=== PATIENT | male | born 1960 | race Caucasian/White ===

== ENCOUNTER 2016-12-05 19:33 | Emergency (ER) | payer OTHER, BC ==
[~2016-12-05] VITALS: Ht 172.7 cm; Wt 110.0 kg
[~2016-12-05 19:33] MED LIST: GABA400C5 PO; LISI-357 PO; MORP30SU PO
[2016-12-05 19:37] VITALS: BP 195/96; PULSE 88; RESP 18; TEMP 97.5; O2SAT 95
== END 2016-12-05 22:10 | disposition left against medical advice (07) ==
LOC: NED 19:33
DX: R06.02 Shortness of breath (principal)
CPT/HCPCS: 99281

== ENCOUNTER 2018-09-13 05:05 | Inpatient (IN) ==
[2018-09-13] MEDS ORDERED: Chlorhexidine Gluconate 2% 1 Pack (2 Cloths) TOPICAL ONE (05:39)
[2018-09-13] MEDS ORDERED: Metoprolol Tartrate 25 MG Tablet PO ONE (05:39)
[2018-09-13] MEDS ORDERED: Dexamethasone Inj 20 MG/5 ML Vial IV.PUSH ONE (05:41)
[2018-09-13] MEDS ORDERED: Chlorhexidine 4% Topical 120 APPLIC/120 ML Bottle TOPICAL SCH (05:45)
[2018-09-13] MEDS ORDERED: Vancomycin Inj 1,000 MG in Sodium Chlor 0.9% Inj 250 ML IV.SIG SCH (06:00)
[2018-09-13] MEDS ORDERED: ceFAZolin 2 GM Premix Inj 2 GM/50 ML PIGGYBACK IV.SIG SCH ×2 (06:00→06:07)
[2018-09-13] MEDS ORDERED: Sodium Chlor 0.9% Inj 500 ML IV.SIG SCH (06:00)
[2018-09-13] MEDS ORDERED: ceFAZolin 2 GM Premix Inj 2 GM/50 ML PIGGYBACK IV.SIG ONE (07:25)
[2018-09-13] MEDS ORDERED: Sodium Chlor 0.9% Inj 50 ML ONE (07:25)
[2018-09-13] MEDS ORDERED: Sodium Chlor 0.9% Inj 73.07 ML, Ropivacaine 0.5% PF Inj 24.63 ML, Ketorolac Inj 30 MG, ... P-ARTICULR SCH ×5 (08:30)
[2018-09-13] MEDS ORDERED: SODIUM CHLOR 0.9% IV.SIG SCH (08:30)
[2018-09-13] MEDS ORDERED: TRANEXAMIC ACID IV.SIG SCH (08:30)
[2018-09-13] MEDS ORDERED: Sodium Chlor 0.9% Inj 100 ML, Tranexamic Acid Inj 3,000 MG P-ARTICULR SCH ×2 (08:30)
[2018-09-13] MEDS ORDERED: *morphine SULFATE 4 MG/ML PERIprocedure ONLY ONE ×2 (11:35→12:06)
--- NOTE | 2018-09-13 11:53 | MP ---
cc: Eb Meadows MD DATE OF OPERATION: 09/13/2018 PREOPERATIVE DIAGNOSIS: Right shoulder osteoarthritis. POSTOPERATIVE DIAGNOSIS: Right shoulder osteoarthritis. PROCEDURE PERFORMED: Right total shoulder arthroplasty. SURGEON: Eb Meadows MD. MOLD CLOSER HELPER: JONN Gilliland. ANESTHESIA: General with an anterior scalene block. ESTIMATED BLOOD LOSS: 200 mL COMPLICATIONS: None. IMPLANTS USED: Arthrex size 10 PressFit humeral stem, size medium glenoid, size 46 x 18 humeral head. JUSTIFICATION: The patient is a 58-year-old male with history of severe end-stage osteoarthritis involving the right shoulder joint. He has severe disabling pain with the use of the arm and even severe pain at rest. The pain does interfere with activities of daily living. He has failed multiple nonoperative conservative treatment modalities over several months' duration to include medications and therapy, injections, activity modification, home exercise program. X-rays of the right shoulder reveal severe osteoarthritis with [id number] joint space narrowing, subchondral sclerosis, subchondral cyst, osteophyte formation with subluxation. The patient was counseled on risks, benefits and alternatives to a total shoulder arthroplasty. The risks were discussed, which include, but are not limited to anesthesia, bleeding, infection, damage to nerves and blood vessels, fracture or dislocations, failure of components, blood clots problems and even . The patient's pain is severe. He favors the benefits, risk and did wish to proceed with surgery. PROCEDURE IN DETAIL: Written consent was obtained. The patient was identified by name, taken to the operating room and placed supine. After general anesthesia was administered to the patient was well as 2 grams of IV Ancef and 1 gram of IV vancomycin, the patient was carefully placed in a beach chair position. All bony prominences and pressure points were well padded. The patient's eyes were padded and protected. His neck position was carefully kept neutral. The right shoulder, right upper extremity prepped and draped using isopropyl alcohol, Hibiclens solution and ChloraPrep solution. After a timeout was performed, a longitudinal incision was made over the anterior aspect of the right shoulder. The deltopectoral interval was explored and the cephalic vein was retracted laterally. The conjoined tendon was retracted medially. A longitudinal incision was made over the region of the subscapularis tendon and the tendon itself was tagged with #2 FiberWire sutures. The shoulder was dislocated and a rongeur was used to remove multiple osteophytes around the shoulder. A guidewire was drilled from the superior aspect into the intramedullary canal of the humerus. This was followed by placement of a humeral cutting guide. T he guide was set at 30 degrees retroverted for the humeral cut and the oscillating saw was used to perform the humeral head cut. A canal finder, a size 6, was placed within the humeral canal and followed by a size 7. Subsequent broaching began with a size 6; was carried through a size 10. The broach guide was placed to keep the 30-degree retroversion intact during broaching. Once prepared the attention was turned to the glenoid where the labrum and capsule was released along the anterior, superior and inferior portions. Once the exposure of the glenoid was adequately achieved, a size medium guide was placed. A central drill hole was placed. This was followed by the placement of the reamer. The reamer was then used to ream the glenoid face. Subsequently, superior and inferior drill holes were placed using the guide. The wound was thoroughly irrigated with sterile saline solution and a size medium all polyethylene Arthrex glenoid was then cemented and secured in place. Extravasation of cement was removed. Attention was turned back to the humerus where a size 10 humeral stem was placed. Different head options were evaluated and the final 46 x 18 head was placed. With that implant secured, the humeral head to be forward flexed to 150 degrees without evidence of anterior instability or impingement. Full internal rotation showed no evidence of dislocation and with the subscapularis not repaired, the humerus did not dislocate until approximately 70 degrees of external rotation. With the subscapularis were held in place, the humerus was stable with full external rotation. At this point, the wound was thoroughly irrigated with sterile saline solution. The subscapularis rotator cuff tendon portion was repaired with #2 FiberWire suture. Subcutaneous layer closed with 2-0 Vicryl. Skin incision closed with Dermabond. Sterile dressing was applied. The patient was placed in a sling and swathe immobilizer. He tolerated the procedure well. No intraoperative complications noted. Edmund Philip, Physician Technician [employer]-Certified, was present for the entire procedure to include the patient positioning and the procedure itself. The medical necessity of a physician dental assistant instructor was indicated in this case due to the complexity of the procedure. He assisted appropriate manipulation and also retraction of muscle, tendon and neurovascular structures. He assisted with preparation of bone and also implantation of the prosthetic replacement. MD YARI Nettles/erlin , 11:08 AM , 11:18 AM
[2018-09-13] MEDS ORDERED: *HYDROmorphone PF Inj 1 MG/ML Ampul PERIprocedural Use ONLY ONE (12:43)
--- NOTE | 2018-09-13 13:45 | XR ---
EXAM DATE: 09/13/2018 1:39 PM EST AGE/SEX: 58 years / Male INDICATIONS: Post op right shoulder surgery. CLINICAL DATA: This is the patient's initial encounter. Patient reports that signs and symptoms have been present for 1 day and indicates a pain score of 10/10. MEDICAL/SURGICAL HISTORY: None. None. COMPARISON: No prior exams available for comparison. FINDINGS: The patient is post right shoulder arthroplasty. The orthopedic hardware is in excellent position. The limited portion of lung apex visualized is clear. CONCLUSION: Orthopedic hardware in excellent position post plating. Electronically signed by: Roscoe Barry MD 09/13/2018 1:43 PM EST
[2018-09-13] MEDS: ceFAZolin 2 GM Premix Inj 2 GM/50 ML PIGGYBACK IV.SIG SCH ×2 (14:30→21:43)
[2018-09-13] MEDS: Lisinopril 10 MG Tablet PO SCH (17:57)
[2018-09-13] MEDS: Gabapentin 400 MG Capsule PO SCH (17:57)
[2018-09-13] MEDS: HYDROmorphone PF Inj 1 MG/ML Ampul IV.PUSH PRN (21:50)
[2018-09-14] MEDS: HYDROmorphone PF Inj 1 MG/ML Ampul IV.PUSH PRN (01:19)
[2018-09-14 05:45] LABS: Hematocrit 35.5 % (39.0-51.0); Hemoglobin 12.2 gm/dL (13.0-17.0)
--- NOTE | 2018-09-14 08:00 | P.PNOP ---
Subjective Interval history: pain controlled. Physical Exam Vital signs: Vital Signs 09/13/18 11:27 09/13/18 11:45 09/13/18 12:00 Temperature 98.8 F Pulse Rate 79 78 75 Respiratory Rate 17 18 18 Blood Pressure 116/53 L 116/59 L 124/64 Pulse Oximetry 94 L 94 L 95 09/13/18 12:15 09/13/18 12:30 09/13/18 12:40 Temperature Pulse Rate 83 88 Respiratory Rate 18 18 Blood Pressure 116/59 L 126/63 Pulse Oximetry 95 95 97 09/13/18 12:45 09/13/18 13:00 09/13/18 14:00 Temperature Pulse Rate 86 91 H 90 Respiratory Rate 18 18 18 Blood Pressure 116/55 L 126/61 135/78 Pulse Oximetry 96 96 94 L 09/13/18 15:30 09/13/18 15:57 09/13/18 16:00 Temperature 98.3 F Pulse Rate 92 H 78 Respiratory Rate 18 18 Blood Pressure 165/81 H 154/74 H Pulse Oximetry 94 L 94 L 95 09/13/18 16:06 09/13/18 19:37 09/13/18 23:36 Temperature 97.4 F L 97.4 F L Pulse Rate 104 H 88 Respiratory Rate 18 18 18 Blood Pressure 149/70 H 147/78 H Pulse Oximetry 94 L 96 09/14/18 03:30 Temperature 97.2 F L Pulse Rate 93 H Respiratory Rate 18 Blood Pressure 158/63 H Pulse Oximetry 97 Intake & Output 09/13/18 09/14/18 09/14/18 18:59 06:59 18:59 Intake Total 1367.25 / 1367.25 530 / 530 Output Total 100 / 100 Balance 1267.25 / 1267.25 530 / 530 Weight 115 kg 115 kg Intake: IV 467.25 / 467.25 50 / 50 Cyklokapron Inj 1,725 MG In NS 117.25 / 117.25 Inj 100 ML @ 200 mls/hr IV.SIG ONCE JAMSHID Rx#:[id number] Vancomycin Inj 1,000 MG In NS 250 / 250 Inj 250 ML @ 250 mls/hr IV.SIG WOUND NURSE JAMSHID Rx#:[id number] Ancef 2 GM Premix Inj 2 gm In 100 / 100 50 / 50 50 ml @ 100 mls/hr IV.SIG Q6H JAMSHID Rx#:[id number] Oral 480 / 480 Anesthesia Amount 900 / 900 Output: Estimated Blood Loss 100 / 100 Other: # Voids 4 Date of Last Bowel Movement 09/12/18 09/12/18 # Bowel Movements 0 Weight On Admission 115 kg Narrative: sitting in chair, nad dressing c/d/i mild swelling shoulder soft 2+ radial pulse nvi, sensation intact appropriate hospitality associate strength Results - Labs CBC & Chem 7: 09/14/18 04:50 Laboratory Results - last 24 hr 09/13/18 09/14/18 07:20 04:50 Hgb 12.2 L Hct 35.5 L Blood Type O Positive Blood Type Recheck Required Antibody Screen Negative - Imaging Impressions Shoulder X-Ray 09/13/18 00:00 CONCLUSION: Orthopedic hardware in excellent position post plating. Assessment and Plan - Ortho Post Op Day # 1 - Assessment and Plan s/p R TSA gentle ROM R shoulder, no external rotation ok to maintain dressing unless saturated d/c planning home with [facility] and pt - cleared today f/up dr. mullins 2 weeks
--- NOTE | 2018-09-14 08:03 | P.DCO ---
- Physical Therapy Physical Therapy: Safety evaluation, Transfer training, bed to chair - Occupational Therapy Right Upper Extremity Weight Bearing: Non-weight bearing Right Upper Extremity Range of Motion: Pendular Additional instructions: no external rotation - Nursing Nursing: Dressing changes Dressing changes: Do not change dressing, Daily dressing change - Certification Need for Home Health services: I have seen patient Zbigniew Recio on 09/14/18. My clinical findings support the need for the requested home health care services because: Need for Home Health Services: Limited ability to care for self, High risk of falls Homebound Certification: I certify that my clinical findings support that this patient is homebound because: Homebound Certification: Post-op weakness, Unsafe to leave home unassisted
[2018-09-14 08:57] VITALS: O2SAT 94
[2018-09-14] MEDS: Lisinopril 10 MG Tablet PO SCH (09:19)
[2018-09-14] MEDS: Gabapentin 400 MG Capsule PO SCH (09:19)
[2018-09-14 12:27] VITALS: BP 139/77; PULSE 84; RESP 18; TEMP 98
== END 2018-09-14 14:39 | disposition home health service (06) ==
LOC: HSDI 05:05 → N06 16:49
PROVIDERS: ADMIT Orthopaedic Surgery Sports Medicine; ATTEND Orthopaedic Surgery Sports Medicine